=== PATIENT | female | born 1975 | race African-American/Black ===

== ENCOUNTER 2017-01-02 09:54 | Emergency (ER) | payer BC, OTHER ==
--- NOTE | 2017-01-02 10:25 | ER Document Report ---
ED Medical Screen (RME) - General Chief Complaint: Abdominal Pain Stated Complaint: ABDOMINAL PAIN Time Seen by Provider: 01/02/17 10:23 Notes: Patient complains of diffuse abdominal pain for 3 days. States she has decreased appetite and nausea. She says she also has diarrhea. She denies any vaginal symptoms. She states she has frequency but no dysuria. She states she has had one previous abdominal surgery for an ectopic . She denies chronic medical problems. She states her blood pressure normally runs low. TRAVEL OUTSIDE OF THE [place] IN LAST 30 DAYS: No - Related Data Allergies/Adverse Reactions: divalproex sodium [From Depakote] Allergy (Severe, Verified 01/02/17 10:02) Hives Penicillins Allergy (Severe, Verified 01/02/17 10:02) Anaphylaxis sulfamethoxazole [From Septra] Allergy (Severe, Verified 01/02/17 10:02) Hives trimethoprim [From Septra] Allergy (Severe, Verified 01/02/17 10:02) Hives tramadol [Tramadol] Adverse Reaction (Verified 01/02/17 10:02) vomitting Past Medical History - Social History Family history: Reviewed & Not Pertinent - Past Medical History Cardiac Medical History: Denies: Hx Coronary Artery Disease, Hx Heart Attack, Hx Hypertension Pulmonary Medical History: Reports: Hx Asthma, Hx Bronchitis Denies: Hx COPD, Hx Pneumonia Neurological Medical History: Reports: Hx Migraine. Denies: Hx Cerebrovascular Accident, Hx Seizures Renal/ Medical History: Denies: Hx Peritoneal Dialysis Musculoskeltal Medical History: Reports Hx Arthritis - Chronic back pain Past Surgical History: Reports: Hx Gynecologic Surgery - tubal , Hx Hysterectomy, Hx Orthopedic Surgery - R wrist, Hx Tubal Ligation - Immunizations Immunizations up to date: Yes Hx Diphtheria, Pertussis, Tetanus Vaccination: Yes Physical Exam - Vital signs Vitals: Temp Pulse Resp BP Pulse Ox 98.3 F 58 L 14 98/61 L 99 01/02/17 10:02 01/02/17 10:02 01/02/17 10:02 01/02/17 10:02 01/02/17 10:02 Course - Vital Signs Vital signs: Temp Pulse Resp BP Pulse Ox 98.3 F 58 L 14 98/61 L 99 01/02/17 10:02 01/02/17 10:02 01/02/17 10:02 01/02/17 10:02 01/02/17 10:02
[2017-01-02 11:05] LABS: ABSOLUTE EOSINOPHILS # (AUTO) 0.1 10^3/uL (0.0-0.6); ABSOLUTE LYMPHOCYTES (AUTO) 1.2 10^3/uL (0.5-4.7); ABSOLUTE MONOCYTES (AUTO) 0.3 10^3/uL (0.1-1.4); ABSOLUTE NEUT (AUTO) 3.8 10^3/uL (1.7-8.2); BASOPHILS % (AUTO) 0.3 % (0-2); EOSINOPHILS % (AUTO) 1.5 % (0-6); HEMATOCRIT 37.6 % (36.0-47.0); HEMOGLOBIN 12.7 g/dL (12.0-15.5); HGB HCT DIFFERENCE 0.5; LYMPHOCYTES % (AUTO) 22.4 % (13-45); MEAN CORPUSCULAR HEMOGLOBIN 32.3 pg (27.0-33.4); MEAN CORPUSCULAR HGB CONC 33.9 g/dL (32.0-36.0); MEAN CORPUSCULAR VOLUME 95 fl (80-97); MONOCYTES % (AUTO) 4.8 % (3-13); RED BLOOD COUNT 3.95 10^6/uL (3.72-5.28); RED CELL DISTRIBUTION WIDTH 13.9 % (11.5-14.0); WHITE BLOOD COUNT 5.4 10^3/uL (4.0-10.5)
[2017-01-02 11:22] LABS: ALANINE AMINOTRANSFERASE 33 U/L (9-52); ALBUMIN 4.2 g/dL (3.5-5.0); ALKALINE PHOSPHATASE 43 U/L (38-126); ANION GAP 9 (5-19); ASPARTATE AMINO TRANSFERASE 20 U/L (14-36); BILIRUBIN,DIRECT 0.4 mg/dL (0.0-0.4); BILIRUBIN,TOTAL 0.7 mg/dL (0.2-1.3); BLOOD UREA NITROGEN 9 mg/dL (7-20); CALCIUM 9.2 mg/dL (8.4-10.2); CARBON DIOXIDE 27 mmol/L (22-30); CHLORIDE 106 mmol/L (98-107); CREATININE RESULT 1.01 mg/dL (0.52-1.25); GLUCOSE 87 mg/dL (75-110); LIPASE 75.4 U/L (23-300); POTASSIUM 4.2 mmol/L (3.6-5.0); SODIUM 141.9 mmol/L (137-145); TOTAL PROTEIN 7.5 g/dL (6.3-8.2)
[2017-01-02 11:37] LABS: APPEARANCE,URINE SLIGHTLY-CLOUDY; BILIRUBIN,URINE NEGATIVE (NEGATIVE); GLUCOSE, URINE NEGATIVE (NEGATIVE); KETONES,URINE NEGATIVE (NEGATIVE); LEUKOCYTE ESTERASE,URINE NEGATIVE (NEGATIVE); NITRITE,URINE NEGATIVE (NEGATIVE); PROTEIN,URINE NEGATIVE (NEGATIVE); UROBILINOGEN,URINE NEGATIVE mg/dL (<2.0)
[2017-01-02] MEDS ORDERED: MAG HYDROX/AL HYDROX/SIMETH SUSP 30 ML UDCUP PO ONE (12:19)
[2017-01-02] MEDS ORDERED: LIDOCAINE 2% VISCOUS SOLN 20 ML UDCUP PO ONE ×2 (12:19→13:30)
[2017-01-02] MEDS ORDERED: NORMAL SALINE 1000 ML 1,000 ML IV ONE (12:22)
--- NOTE | 2017-01-02 12:22 | ER Document Report ---
ED GI/ - General Chief Complaint: Abdominal Pain Stated Complaint: ABDOMINAL PAIN Time Seen by Provider: 01/02/17 10:23 Mode of Arrival: Ambulatory Information source: Patient Notes: Patient presents with 3 day history of abdominal pain and decreased appetite. Patient states that the pain starts in the upper abdomen and radiates to her left lower quadrant. Patient does report nausea and vomited twice yesterday and had diarrhea yesterday. Patient denies any vomiting or diarrhea today. Patient does complain of some urinary frequency. No fever. Patient additionally complains of rash to the anterior aspect of her left lower extremity that has been there for months. Patient denies any new medications, soaps or detergents. Patient denies any vaginal bleeding or discharge. Patient denies any concern about sexually transmitted infection. TRAVEL OUTSIDE OF THE [place] IN LAST 30 DAYS: No - HPI Patient complains to provider of: Abdominal pain, Diarrhea, Vomiting. No: Vaginal discharge Onset: Other - 3 days Timing/Duration: Persistent Quality of pain: Sharp, Throbbing Pain Level: 3 Location: Epigastric, LLQ Vaginal bleeding (Compared to normal period): None Sexual history: Active Associated symptoms: Diarrhea, Nausea, Urinary frequency, Vomiting. denies: Constipation, Dysuria, Fever, Urinary hesitancy, Urinary retention, Urinary urgency, Vaginal discharge Exacerbated by: Denies Relieved by: Denies Similar symptoms previously: No Recently seen / treated by doctor: No - Related Data Allergies/Adverse Reactions: divalproex sodium [From Depakote] Allergy (Severe, Verified 01/02/17 10:02) Hives Penicillins Allergy (Severe, Verified 01/02/17 10:02) Anaphylaxis sulfamethoxazole [From Septra] Allergy (Severe, Verified 01/02/17 10:02) Hives trimethoprim [From Septra] Allergy (Severe, Verified 01/02/17 10:02) Hives tramadol [Tramadol] Adverse Reaction (Verified 01/02/17 10:02) vomitting Past Medical History - General Information source: Patient - Social History Smoking Status: Never Smoker Chew tobacco use (# tins/day): No Frequency of alcohol use: None Drug Abuse: None Occupation: data operations manager Family History: Reviewed & Not Pertinent Patient has suicidal ideation: No Patient has homicidal ideation: No - Past Medical History Cardiac Medical History: Denies: Hx Coronary Artery Disease, Hx Heart Attack, Hx Hypertension Pulmonary Medical History: Reports: Hx Asthma, Hx Bronchitis Denies: Hx COPD, Hx Pneumonia Neurological Medical History: Reports: Hx Migraine. Denies: Hx Cerebrovascular Accident, Hx Seizures Renal/ Medical History: Denies: Hx Peritoneal Dialysis Musculoskeltal Medical History: Reports Hx Arthritis - Chronic back pain Past Surgical History: Reports: Hx Gynecologic Surgery - tubal , left ovary removed, Hx Hysterectomy, Hx Orthopedic Surgery - R wrist, Hx Tubal Ligation - Immunizations Immunizations up to date: Yes Hx Diphtheria, Pertussis, Tetanus Vaccination: Yes Review of Systems - Review of Systems Constitutional: No symptoms reported. denies: Fever, Recent illness EENT: No symptoms reported Cardiovascular: No symptoms reported. denies: Chest pain Respiratory: No symptoms reported. denies: Cough, Short of breath Gastrointestinal: Abdominal pain, Diarrhea - Yesterday, Vomiting - Yesterday. denies: Constipation, Poor appetite Genitourinary: Dysuria. denies: Flank pain Female Genitourinary: No symptoms reported. denies: , Vaginal discharge , Vaginal bleeding Musculoskeletal: Back pain - Chronic low back pain Skin: No symptoms reported Hematologic/Lymphatic: No symptoms reported Neurological/Psychological: No symptoms reported Physical Exam - Vital signs Vitals: Temp Pulse Resp BP Pulse Ox 98.3 F 58 L 14 98/61 L 99 01/02/17 10:02 01/02/17 10:02 01/02/17 10:02 01/02/17 10:02 01/02/17 10:02 - General General appearance: Appears well, Alert In distress: None - HEENT Head: Normocephalic, Atraumatic Eyes: Normal Nasal: Normal Mouth/Lips: Normal Mucous membranes: Normal Neck: Normal, Supple. No: Lymphadenopathy - Respiratory Respiratory status: No respiratory distress Chest status: Nontender Breath sounds: Normal. No: Rales, Rhonchi, Stridor, Wheezing Chest palpation: Normal - Cardiovascular Rhythm: Regular Heart sounds: S1 appreciated, S2 appreciated Murmur: No - Abdominal Inspection: Normal Distension: No distension Bowel sounds: Normal Tenderness: Tender - epig Organomegaly: No organomegaly - Back Back: Tender - Lumbar paraspinal tenderness, Vertebra tenderness - Lower lumbar tenderness. No: Deformity/step-off, CVA tenderness - Extremities General upper extremity: Normal inspection, Normal ROM General lower extremity: Normal inspection, Normal ROM - Neurological Neuro grossly intact: Yes Cognition: Normal [place] Coma Scale Eye Opening: Spontaneous [place] Coma Scale Verbal: Oriented [place] Coma Scale Motor: Obeys Commands [place] Coma Scale Total: 15 - Psychological Associated symptoms: Normal affect, Normal mood - Skin Skin Temperature: Warm Skin Moisture: Dry Skin Color: Normal Course - Re-evaluation Re-evalutation: 01/02/17 14:[address] Peace regarding patient presentation diagnostic test results and ultrasound report. Recommends consultation with surgeon. Attempted to consult with surgeon Dr. Shin. Message relayed through the OR nurse at the time. RN advised of patient presentation and request for surgical evaluation of patient in the ER. RN states she will relay the message. 01/02/17 14:[address] Shin and reviewed patient's exam findings, diagnostic test results and presentation. Advises having patient on a clear liquid diet, managing her pain with Bentyl and having her follow-up with the surgeon on an outpatient basis. Advises giving good return precautions. 01/02/17 14:48 Patient reports that abdominal pain improved after GI cocktail. Patient advised of results of diagnostic test results including ultrasound report findings. Patient advised of conversation with surgeon Dr. Shin. Patient advised that she will need to be on a clear liquid diet and need to follow-up with with general surgery on an outpatient basis to have her gallbladder removed. Patient verbalized understanding and agrees with plan of care. - Vital Signs Vital signs: Temp Pulse Resp BP Pulse Ox 98.0 F 68 16 107/64 98 01/02/17 13:29 01/02/17 13:29 01/02/17 13:29 01/02/17 13:29 01/02/17 13:29 - Laboratory Result Diagrams: 01/02/17 10:57 01/02/17 10:57 Laboratory results interpreted by me: Labs- Entire Visit 01/02/17 01/02/17 01/02/17 10:57 10:57 10:58 WBC 5.4 RBC 3.95 Hgb 12.7 Hct 37.6 MCV 95 MCH 32.3 MCHC 33.9 RDW 13.9 Plt Count 200 Seg Neutrophils % 71.0 Lymphocytes % 22.4 Monocytes % 4.8 Eosinophils % 1.5 Basophils % 0.3 Absolute Neutrophils 3.8 Absolute Lymphocytes 1.2 Absolute Monocytes 0.3 Absolute Eosinophils 0.1 Absolute Basophils 0.0 Sodium 141.9 Potassium 4.2 Chloride 106 Carbon Dioxide 27 Anion Gap 9 BUN 9 Creatinine 1.01 Est GFR ( Amer) > 60 Est GFR (Non-Af Amer) > 60 Glucose 87 Calcium 9.2 Total Bilirubin 0.7 Direct Bilirubin 0.4 Indirect Bilirubin Not Reportable Neonat Total Bilirubin Not Reportable AST 20 ALT 33 Alkaline Phosphatase 43 Total Protein 7.5 Albumin 4.2 Lipase 75.4 Urine Color YELLOW Urine Appearance SLIGHTLY-CLOUDY Urine pH 5.0 Ur Specific [place] 1.020 Urine Protein NEGATIVE Urine Glucose (UA) NEGATIVE Urine Ketones NEGATIVE Urine Blood NEGATIVE Urine Nitrite NEGATIVE Urine Bilirubin NEGATIVE Urine Urobilinogen NEGATIVE Ur Leukocyte Esterase NEGATIVE Urine WBC (Auto) 10 Urine RBC (Auto) 4 Squamous Epi Cells Auto 16 Urine Mucus (Auto) RARE Urine Ascorbic Acid NEGATIVE Urine HCG, Qual NEGATIVE - Diagnostic Test Radiology reviewed: Reports reviewed Discharge - Discharge Clinical Impression: Epigastric abdominal pain, Gallbladder attack, Nausea vomiting and diarrhea, Skin rash Condition: Stable Disposition: HOME, SELF-CARE Instructions: Abdominal Pain ([facility]), Antinausea Medication ([facility]), Antispasmodics ([facility]), Gallbladder Disease ([facility]), Vomiting ([facility]) Additional Instructions: Return immediately for any new or worsening symptoms Followup with your primary care provider, call tomorrow to make a followup appointment Follow-up with the general surgeon for further evaluation. You will likely need to have your gallbladder removed. It is important that you stay on a clear liquid diet or a very bland diet avoiding any fatty foods. Return immediately for any fever, increased abdominal pain, persistent vomiting , darkening of the skin, eyes or urine, or any concerning symptoms Prescriptions: Dicyclomine HCl [Bentyl 20 mg Tablet] 20 mg PO QID #20 tablet Ondansetron HCl [Zofran 4 mg Tablet] 1 - 2 tab PO Q6 PRN #15 tablet PRN Reason: Triamcinolone Acetonide [Aristocort 0.1% Cream] 1 applic TP TID #60 gm Forms: Return to Work Referrals: [facility] [Provider Group] - Follow up tomorrow IRASEMA ROCHA MD [Primary Care Provider] - Follow up as needed ULYSSES GRANT DO [ACTIVE STAFF] - Follow up in 1 week
--- NOTE | 2017-01-02 13:02 | RADIOLOGY REPORT (SQ) ---
EXAM DESCRIPTION: U/S ABDOMEN LIMITED W/O DOP COMPLETED DATE/TIME: 01/02/2017 12:51 pm REASON FOR STUDY: upper abd pain COMPARISON: None. TECHNIQUE: Dynamic and static grayscale images acquired of the abdomen and recorded on PACS. Additio nal selected color Doppler and spectral images recorded. LIMITATIONS: None. FINDINGS: PANCREAS: No masses. Visualized pancreatic duct normal caliber. LIVER: No masses. Echotexture normal. LIVER VASCULATURE: Normal directional flow of the main portal vein and hepatic veins. GALLBLADDER: No stones. Small mucosal polyp. Normal wall thickness. Trace pericholecystic fluid. ULTRASOUND-DETECTED TILLEY'S SIGN: Positive. INTRAHEPATIC DUCTS AND COMMON DUCT: CBD and intrahepatic ducts normal caliber. No filling defects. INFERIOR VENA CAVA: Normal flow. AORTA: No aneurysm. RIGHT KIDNEY: Normal size. Normal echogenicity. No solid or suspicious masses. No hydronephrosis. No calcifications. PERITONEAL AND RIGHT PLEURAL SPACE: No ascites or effusions. OTHER: No other significant findings. IMPRESSION: NO GALLSTONES. SMALL MUCOSAL POLYP. TRACE PERICHOLECYSTIC FLUID WITH REPORTED POSITIVE SONOGRAPHIC TILLEY SIGN. CONSIDER POSSIBILITY OF ACALCULOUS CHOLECYSTITIS. TECHNICAL DOCUMENTATION: JOB ID: [id number] [employer]- All Rights Reserved
[2017-01-02 13:31] VITALS: BP 107/64
== END 2017-01-02 15:06 | disposition home or self-care (01) ==
LOC: ER 09:54
DX: R10.13 Epigastric pain (principal); K81.0 Acute cholecystitis; R10.32 Left lower quadrant pain; R21 Rash and other nonspecific skin eruption; R19.7 Diarrhea, unspecified; R11.2 Nausea with vomiting, unspecified; R35.0 Frequency of micturition; Z88.0 Allergy status to penicillin; Z88.3 Allergy status to other anti-infective agents; Z90.710 Acquired absence of both cervix and uterus
CPT/HCPCS: 99284; 36415; 83690; 85025; 81025; 80053; 81001; 76705; J3490

== ENCOUNTER → 2017-01-31 | Outpatient (CLI) | payer BC ==
--- NOTE | 2017-01-31 15:53 | RADIOLOGY REPORT (SQ) ---
EXAM DESCRIPTION: CT ABDOMEN WITH IV ORAL CONT COMPLETED DATE/TIME: 01/31/2017 3:29 pm REASON FOR STUDY: ABDMINAL PAIN R10.9 UNSPECIFIED ABDOMINAL PAIN COMPARISON: 01/02/[address] abdomen 2013. TECHNIQUE: CT scan of the abdomen performed with intravenous and oral contrast using helical scannin g technique with dynamic intravenous contrast injection. Images reviewed with lung, soft tissue, and bone windows. Reconstructed coronal and sagittal MPR images reviewed. Delayed images for evaluation o f the urinary system also acquired. All images stored on PACS. All CT scanners at this facility use dose modulation, iterative reconstruction, and/or weight based d osing when appropriate to reduce radiation dose to as low as reasonably achievable (ALARA). [facility]: Dose Right [facility]: CareDose [facility]: Dose Right [facility]: Teradose 4D [facility]: Drone.io CONTRAST TYPE AND DOSE: contrast/concentration: Isovue 370.00 mg/ml; Total Contrast Delivered: 64.0 ml; Total Saline Delivered: 26.9 ml RENAL FUNCTION: None required. The patient is less than 50 years old. RADIATION DOSE: Up-to-date CT equipment and radiation dose reduction techniques were employed. CTDIv ol: 2.4 - 2.8 mGy. DLP: 180 mGy-cm.. LIMITATIONS: None. FINDINGS: LOWER CHEST: No significant findings. No nodules or infiltrates. LIVER: Normal size. No masses. No dilated ducts. SPLEEN: Normal size. No focal lesions. PANCREAS: No masses. No significant calcifications. No adjacent inflammation or peripancreatic fluid collections. Pancreatic duct not dilated. GALLBLADDER: No identified stones by CT criteria. No inflammatory changes to suggest cholecystitis. ADRENAL GLANDS: No significant masses or asymmetry. RIGHT KIDNEY AND URETER: No solid masses. No significant calcification. No hydronephrosis or hydroure ter. LEFT KIDNEY AND URETER: No solid masses. No significant calcification. No hydronephrosis or hydrouret er. AORTA AND VESSELS: No aneurysm. No dissection. Renal arteries, SMA, celiac without stenosis. RETROPERITONEUM: No retroperitoneal adenopathy, hemorrhage or masses. BOWEL AND PERITONEAL CAVITY: No obstruction. No visualized masses. No free fluid. No inflammatory ch anges or thickening of bowel wall. APPENDIX: Not visualized. ABDOMINAL WALL: No masses. No hernias. BONES: No significant or acute findings. OTHER: No other significant finding. IMPRESSION: 1. Normal CT of the abdomen. TECHNICAL DOCUMENTATION: JOB ID: [id number] Quality ID # [id number]: Final reports with documentation of one or more dose reduction techniques (e.g., Au tomated exposure control, adjustment of the mA and/or kV according to patient size, use of iterative reconstruction technique) 2010 [employer]- All Rights Reserved
== END ==
LOC: RAD 14:46
PROVIDERS: ATTEND Surgery
DX: R10.9 Unspecified abdominal pain (principal)
CPT/HCPCS: 74160

== ENCOUNTER → 2017-02-20 | Outpatient (CLI) | payer BC ==
--- NOTE | 2017-02-20 16:54 | RADIOLOGY REPORT (SQ) ---
EXAM DESCRIPTION: NM HIDA SCAN COMPLETED DATE/TIME: 02/20/2017 3:09 pm REASON FOR STUDY: EPIGASTRIC PAIN (R10.13), CHANGE IN BOWEL HABIT (R19.4) R10.13 EPIGASTRIC PAIN R1 9.4 CHANGE IN BOWEL HABIT COMPARISON: CT abdomen pelvis 01/21/2014, 01/31/2017 Right upper quadrant ultrasound 01/02/2017 RADIONUCLIDE AND DOSE: DOSAGE RADIONUCLIDE: 5.2 millicuries Tc99m Mebrofenin. DOSAGE MORPHINE: Not required. The route of agent administration: Intravenous TECHNIQUE: Serial imaging right upper quadrant up to 60 minutes following injection of radionuclide. Patient imaged AP and Right Lateral. LIMITATIONS: None. FINDINGS: Prompt homogeneous uptake throughout the liver which clears by 60 minutes. By 10 minutes, common bile duct, duodenum and jejunum exhibit activity. No gallbladder activity. By 60 minutes nearly all the activity is present in bowel. There are multiple bowel loops superimpos ed on the right upper quadrant. It is difficult to discern if the gallbladder actually accumulates a ny activity on this study. IMPRESSION: No evidence of common duct obstruction. Normal hepatic excretion of the hepatobiliary a gent. Bowel activity was so intense on the study by 30 minutes, that it was difficult to discern if there w as truly any gallbladder accumulation. This is a nondiagnostic study for gallbladder activity TECHNICAL DOCUMENTATION: JOB ID: [id number] [employer]- All Rights Reserved
== END ==
LOC: RAD 12:30
PROVIDERS: ATTEND Surgery
DX: R10.13 Epigastric pain (principal); R19.4 Change in bowel habit
CPT/HCPCS: 78226; A9537; Q9969

== ENCOUNTER 2017-03-06 08:46 | Day surgery (SDC) | payer BC ==
[2017-03-06] MEDS ORDERED: NALOXONE HCL INJ/PF 0.4 MG/1 ML SDV ONE (08:50)
[2017-03-06] MEDS ORDERED: GLYCOPYRROLATE INJ 0.4 MG/2 ML VIAL ONE (08:50)
[2017-03-06] MEDS ORDERED: ONDANSETRON HCL INJ/PF 4 MG/2 ML SDV ONE (08:50)
[2017-03-06] MEDS ORDERED: FLUMAZENIL INJ 0.5 MG/5 ML VIAL ONE (08:51)
[2017-03-06] MEDS ORDERED: EPINEPHRINE INJ 1 MG/10 ML DISP.SYRIN ONE (08:51)
[2017-03-06] MEDS ORDERED: GLUCAGON,HUMAN RECOMB 1 MG INJ ONE (08:52)
[2017-03-06 09:12] LABS: HEMATOCRIT 38.2 % (36.0-47.0); HEMOGLOBIN 12.8 g/dL (12.0-15.5); HGB HCT DIFFERENCE 0.2; MEAN CORPUSCULAR HEMOGLOBIN 31.6 pg (27.0-33.4); MEAN CORPUSCULAR HGB CONC 33.6 g/dL (32.0-36.0); MEAN CORPUSCULAR VOLUME 94 fl (80-97); RED BLOOD COUNT 4.06 10^6/uL (3.72-5.28); RED CELL DISTRIBUTION WIDTH 13.6 % (11.5-14.0); WHITE BLOOD COUNT 6.4 10^3/uL (4.0-10.5)
[2017-03-06 09:35] LABS: ALANINE AMINOTRANSFERASE 26 U/L (9-52); ALBUMIN 4.1 g/dL (3.5-5.0); ALKALINE PHOSPHATASE 44 U/L (38-126); ANION GAP 11 (5-19); ASPARTATE AMINO TRANSFERASE 33 U/L (14-36); BILIRUBIN,DIRECT 0.5 mg/dL (0.0-0.4); BILIRUBIN,TOTAL 0.7 mg/dL (0.2-1.3); BLOOD UREA NITROGEN 10 mg/dL (7-20); CALCIUM 8.9 mg/dL (8.4-10.2); CARBON DIOXIDE 26 mmol/L (22-30); CHLORIDE 107 mmol/L (98-107); CREATININE RESULT 0.89 mg/dL (0.52-1.25); GLUCOSE 88 mg/dL (75-110); LIPASE 114.8 U/L (23-300); POTASSIUM 3.9 mmol/L (3.6-5.0); TOTAL PROTEIN 7.4 g/dL (6.3-8.2)
[2017-03-06] MEDS: MIDAZOLAM 2 MG/2 ML INJ ONE ×4 (09:50→10:21)
[2017-03-06] MEDS: FENTANYL CITRATE INJ/PF 100 MCG/2 ML AMPUL ONE ×2 (09:52→10:15)
--- NOTE | 2017-03-06 10:57 | Operative Report ---
Operative Report DATE OF SURGERY: 03/06/17 PREOPERATIVE DIAGNOSIS: Bowel habit changes, abdominal pain. POSTOPERATIVE DIAGNOSIS: Gastritis, colitis OPERATION: Esophagogastroduodenoscopy with antral biopsies. Colonoscopy with colon biopsies. SURGEON: JOHANNY FUNEZ ANESTHESIA: Moderate Sedation TISSUE REMOVED OR ALTERED: Antral biopsy. Right colon biopsy. Liquid stool sent for studies. COMPLICATIONS: None ESTIMATED BLOOD LOSS: Minimal INTRAOPERATIVE FINDINGS: Mild gastric erythema but no ulcerations. Normal- appearing esophagus. Erythema scattered throughout the colon but no ulcerations and no masses. Thick liquid stool throughout the colon. PROCEDURE: Informed consent was obtained. Patient was brought to the endoscopy suite. IV sedation with Versed and fentanyl was administered. Endoscope was passed via the patient's mouth it was fed down to the second portion of the duodenum. Duodenal bulb had mild erythema but no ulcerations no masses. The gastric mucosa appeared mildly erythematous but no ulcerations no masses. Random antral biopsies were taken for H. pylori. There was a lot of air bubbles in the stomach extending to the esophagus which was controlled with simethicone injection through the scope. The esophagus appeared normal. Patient was repositioned. Digital rectal exam revealed no palpable perianal masses. Endoscope was passed via the patient's anus it was fed to the cecum. Patient's sigmoid colon redundancies and thick liquid stool throughout the colon made the procedure difficult. Multiple technical measures were taken to pass the scope to the cecum. Frequent irrigation and aspiration had to be performed to obtain adequate visualization. Throughout the entire colon from the right colon to the sigmoid colon there were mild mucosal erythema but no ulcerations and no masses. Right colon biopsies were performed. Some of the thick liquid stool was aspirated for Gram stain and culture, ova and parasites, fecal leukocytes, and C. difficile toxin studies. Patient tolerated procedure well with no apparent complications and was taken to the recovery area in stable condition. Evidence of mild gastritis seen but with the severity of her symptoms I do not think it is the etiology of her pain. It is possible that she has pancolitis. Will await biopsy and stool study results. I will follow-up with the patient. Of note her CCK HIDA study was nondiagnostic with unclear visualization of the gallbladder. Radiologist noted a lot of air in the bowel. And I did note a lot of air bubbles in the stomach during the upper endoscopy. While awaiting pathology report I [facility].
--- NOTE | 2017-03-06 11:06 | PDOC DISCHARGE SUMMARY ---
Discharge Summary (SDC) - Discharge Final Diagnosis: Gastritis, colitis. Date of Surgery: 03/06/17 Discharge Date: 03/06/17 Condition: Good Treatment or Instructions: Underwent esophagogastroduodenoscopy with gastric biopsy, colonoscopy with colon biopsies. May discharge patient home when met discharge criteria. Follow -up with me in 2 weeks. Prescriptions: Simethicone [Gas-X] 125 mg PO TID PRN #90 tab.chew PRN Reason: Referrals: JOHANNY FUNEZ MD [Primary Care Provider] - Discharge Diet: As Tolerated Discharge Activity: Activity As Tolerated Report the Following to Your Physician Immediately: Unusual Bleeding
[2017-03-06 11:41] VITALS: BP 98/61
== END 2017-03-06 11:40 | disposition home or self-care (01) ==
LOC: END 08:46
PROVIDERS: ATTEND Surgery
PROC: 0DB68ZX Excision of Stomach, Via Natural or Artificial Opening Endoscopic, Diagnostic (ICD-10-PCS; principal; 2017-03-06 09:30)
PROC: 0DBF8ZX Excision of Right Large Intestine, Via Natural or Artificial Opening Endoscopic, Diagnostic (ICD-10-PCS; 2017-03-06 09:30)
DX: K29.50 Unspecified chronic gastritis without bleeding (principal); K52.9 Noninfective gastroenteritis and colitis, unspecified; E07.9 Disorder of thyroid, unspecified; F17.210 Nicotine dependence, cigarettes, uncomplicated; Z88.0 Allergy status to penicillin; Z88.3 Allergy status to other anti-infective agents; Z88.5 Allergy status to narcotic agent; Z88.8 Allergy status to other drugs, medicaments and biological substances; Z02.89 Encounter for other administrative examinations
CPT/HCPCS: 43239; 45380; 36415; 87045; 89055; 87205; 87209; 83690; 87177; 85027; 80053; 87493; 88305 ×2; J2250; J3010; J0171; J1610; J2310; J2405; J3490

== ENCOUNTER 2017-05-29 11:06 | Day surgery (SDC) | payer BC ==
[2017-05-22 12:24] LABS: HEMATOCRIT 35.9 % (36.0-47.0); HEMOGLOBIN 12.4 g/dL (12.0-15.5); MEAN CORPUSCULAR HEMOGLOBIN 32.8 pg (27.0-33.4); MEAN CORPUSCULAR HGB CONC 34.4 g/dL (32.0-36.0); MEAN CORPUSCULAR VOLUME 95 fl (80-97); PLATELET COUNT 222 10^3/uL (150-450); RED BLOOD COUNT 3.77 10^6/uL (3.72-5.28); RED CELL DISTRIBUTION WIDTH 13.6 % (11.5-14.0); WHITE BLOOD COUNT 6.8 10^3/uL (4.0-10.5)
[2017-05-22 12:45] LABS: ALANINE AMINOTRANSFERASE 22 U/L (9-52); ALBUMIN 4.2 g/dL (3.5-5.0); ALKALINE PHOSPHATASE 46 U/L (38-126); ANION GAP 8 (5-19); ASPARTATE AMINO TRANSFERASE 21 U/L (14-36); BILIRUBIN,DIRECT 0.4 mg/dL (0.0-0.4); BILIRUBIN,TOTAL 0.7 mg/dL (0.2-1.3); BLOOD UREA NITROGEN 9 mg/dL (7-20); CALCIUM 9.3 mg/dL (8.4-10.2); CARBON DIOXIDE 25 mmol/L (22-30); CHLORIDE 106 mmol/L (98-107); GLUCOSE 68 mg/dL (75-110); LIPASE 134.4 U/L (23-300); POTASSIUM 4.3 mmol/L (3.6-5.0); SODIUM 139.4 mmol/L (137-145); TOTAL PROTEIN 7.4 g/dL (6.3-8.2)
[~2017-05-29 11:06] MED LIST: ACETAMINOPHEN 325 MG TABLET PO PRN; BUPIVACAINE HCL 0.25 % INJ/PF (2.5 MG/1 ML) 30 ML VIAL ONE; DEXAMETHASONE SOD PHOSPHATE INJ 4 MG/1 ML VIAL ONE; GLYCOPYRROLATE INJ 0.4 MG/2 ML VIAL ONE; LEVOFLOXACIN 500 MG/D5W RTU 500 MG/100 ML RTUPB IV PRN; LEVOFLOXACIN 750 MG/D5W RTU 750 MG/150 ML RTUPB IV SCH; NEOSTIGMINE METHYLSULFATE 10 MG/10 ML VIAL ONE; ONDANSETRON HCL INJ/PF 4 MG/2 ML SDV ONE; RINGERS SOLUTION,LACTATED 1,000 ML IV PRN; ROCURONIUM BROMIDE INJ 50 MG/5 ML VIAL IV ONE; SUCCINYLCHOLINE CHLORIDE INJ 200 MG/10 ML VIAL ONE
[2017-05-29] MEDS ORDERED: PROPOFOL INJ 200 MG/20 ML VIAL IV ONE (14:15)
[2017-05-29] MEDS ORDERED: MIDAZOLAM 2 MG/2 ML INJ ONE (14:15)
[2017-05-29] MEDS ORDERED: EPHEDRINE SULFATE INJ 50 MG/1 ML AMPULE ONE (14:15)
[2017-05-29] MEDS ORDERED: FENTANYL CITRATE INJ/PF 250 MCG/5 ML AMPULE ONE (14:15)
[2017-05-29] MEDS ORDERED: ACETAMINOPHEN 100 ML IV ONE (14:15)
[2017-05-29] MEDS ORDERED: HYDROMORPHONE HCL INJ/PF 2 MG/ML AMPULE ONE (14:16)
[2017-05-29] MEDS ORDERED: MEPERIDINE HCL/PF INJ 25 MG/1 ML DISP.SYRIN IV PRN (14:58)
[2017-05-29] MEDS ORDERED: DIPHENHYDRAMINE HCL 50 MG/ML VIAL IV PRN (14:58)
[2017-05-29] MEDS ORDERED: PROMETHAZINE HCL INJ 25 MG/1 ML VIAL IV PRN ×2 (14:58)
[2017-05-29] MEDS ORDERED: FENTANYL CITRATE INJ/PF 100 MCG/2 ML AMPUL IV PRN ×3 (14:58)
[2017-05-29] MEDS ORDERED: ONDANSETRON HCL INJ/PF 4 MG/2 ML SDV IV PRN (15:45)
[2017-05-29] MEDS ORDERED: OXYCODONE-ACETAMINOPHEN 5-325 MG TABLET PO PRN (15:45)
[2017-05-29] MEDS ORDERED: RINGERS SOLUTION,LACTATED 1,000 ML IV PRN (15:45)
--- NOTE | 2017-05-29 15:45 | Operative Report ---
Operative Report DATE OF SURGERY: 05/29/17 PREOPERATIVE DIAGNOSIS: Abdominal pain. Chronic cholecystitis. POSTOPERATIVE DIAGNOSIS: Same, bilateral ovarian and paratubal cysts. OPERATION: Laparoscopic cholecystectomy. Exploratory laparoscopy. SURGEON: JOHANNY FUNEZ ANESTHESIA: GA TISSUE REMOVED OR ALTERED: gallbladder COMPLICATIONS: None ESTIMATED BLOOD LOSS: Minimal INTRAOPERATIVE FINDINGS: Normal-appearing liver, stomach, anterior surface of the first and second portion of the duodenum, right colon, appendix, transverse colon, sigmoid colon, anterior abdominal wall. Bilateral benign-appearing ovarian and paratubal cysts. Normal-appearing small bowel. Distended gallbladder with gallbladder wall thickening. PROCEDURE: Informed consent was obtained. Patient was brought to the operating room placed operating table in supine position. After satisfactory induction of general anesthesia, patient's abdomen was prepped and draped in usual sterile fashion. A supraumbilical midline incision was made and dissection carried down to the fascia the peritoneal cavity entered without difficulty. Diaz trocar was inserted. Pneumoperitoneum produced good patient toleration. 5 mm trocar was placed in the subxiphoid location.Two 5 mm trochars were placed in the right subcostal location. Exploratory laparoscopy was performed first since she had epigastric abdominal pain and the diagnosis was uncertain about the gallbladder. The liver appeared normal. Anterior abdominal wall appeared normal. The anterior surface of the stomach and first and second portion of the duodenum appeared to be normal. The right colon and the appendix appeared normal. The transverse colon and the sigmoid colon appeared normal. The small bowel was run from the ileocecal junction up proximally but no gross abnormalities were seen. Both of the ovaries were visualized. There were ovarian as well as paratubal cysts. I conferred with the on-call senior benefits manager who thought that these were benign findings. There was small amount of clear serous fluid in the peritoneal cavity. The gallbladder appeared distended and its wall appeared somewhat thickened. The gallbladder was grasped and retracted cephalad over the dome of the liver. The infundibulum of the gallbladder was grasped retracted laterally and inferiorly thus exposing calot' s triangle. Calot's node was taken off by clipping and dividing. The cystic duct gallbladder junction was clearly identified and the cystic duct was clipped and divided. Cystic artery was likewise taken. The gallbladder was taken off the gallbladder bed using the hook electrocautery technique. The gallbladder was removed with an Endobag through the Diaz trocar site fascial defect. Hemostasis appeared excellent. No irrigation was used during the case. All trochars were removed under the direct vision a laparoscope to ensure hemostasis. The Diaz trocar site fascial defect was closed with interrupted Vicryl sutures. All skin incisions were closed with subcuticular interrupted Monocryl sutures. Marcaine was injected at the port sites. Patient tolerated procedure well no apparent complications and was taken to the recovery area in stable condition.
--- NOTE | 2017-05-29 15:49 | PDOC DISCHARGE SUMMARY ---
Discharge Summary (SDC) - Discharge Final Diagnosis: Chronic cholecystitis, bilateral ovarian and paratubal cysts. Date of Surgery: 05/29/17 Discharge Date: 05/29/17 Condition: Good Treatment or Instructions: Underwent laparoscopic cholecystectomy and exploratory laparoscopy. May discharge patient home when met discharge criteria. Stay active but avoid strenuous activity. May shower tomorrow. Keep Steri-Strips on. Follow-up with me in 2 weeks. Referrals: IRASEMA ROCHA MD [Primary Care Provider] - Discharge Diet: As Tolerated Discharge Activity: Activity As Tolerated - Stay active but avoid strenuous activity. Report the Following to Your Physician Immediately: Yellow Skin, Unusual Bleeding, Redness, Drainage-Foul Smelling
[2017-05-29] MEDS: FENTANYL CITRATE INJ/PF 100 MCG/2 ML AMPUL ONE ×2 (16:00→16:05)
[2017-05-29] MEDS ORDERED: PROMETHAZINE HCL INJ 25 MG/1 ML VIAL ONE (16:09)
[2017-05-29 18:21] VITALS: BP 112/67
[2017-05-30] MEDS ORDERED: LACTATED RINGERS 1000 ML IV PRN (05:00)
[2017-05-30] MEDS ORDERED: LIDOCAINE 0.5% INJ-PF (5 MG/ML) 50 ML SDV SUBCUT PRN (05:00)
== END 2017-05-29 18:05 | disposition home or self-care (01) ==
LOC: OROUT 11:06
PROVIDERS: ATTEND Surgery
PROC: 0FT44ZZ Resection of Gallbladder, Percutaneous Endoscopic Approach (ICD-10-PCS; principal; 2017-05-29 13:00)
DX: K81.1 Chronic cholecystitis (principal); N83.202 Unspecified ovarian cyst, left side; N83.201 Unspecified ovarian cyst, right side; N83.8 Other noninflammatory disorders of ovary, fallopian tube and broad ligament
CPT/HCPCS: 47562; 36415; 83690; 85027; 80053; 88304 ×2; J2250; J1956; J3490; J1100; J3010 ×2; J2550; J0330; J2405; J2704; J0131; 790; J1170

== ENCOUNTER → 2017-08-01 | Outpatient (CLI) | payer BC ==
--- NOTE | 2017-08-01 13:41 | WOMENS IMAGING REPORT ---
EXAM DESCRIPTION: 3D DX MAMMO BILAT; U/S BREAST UNILAT LIMITED COMPLETED DATE/TIME: 08/01/2017 9:30 am; 08/01/2017 10:45 am REASON FOR STUDY: LUMP; N63; BILATERAL BREAST PALP; N63 N63.0 UNSPECIFIED LUMP IN UNSPECIFIED [address] COMPARISON: None. TECHNIQUE: Standard craniocaudal and mediolateral oblique views of each breast recorded using digita l acquisition and breast tomosynthesis. Bilateral cone compression in the CC and MLO orientations, bilateral whole breast 90 mediolateral vi ews. Bilateral breast ultrasound was also performed LIMITATIONS: None. FINDINGS: RIGHT BREAST MASSES: In the right upper outer quadrant, multiple well-circumscribed low-density mammographic nodul es are present, the largest is about 3.5 cm in size containing dependently layering benign calcificat ions. CALCIFICATIONS: No new or suspicious calcifications. ARCHITECTURAL DISTORTION: None. DEVELOPING DENSITY: None. ASYMMETRY: None noted. OTHER: No other significant findings. LEFT BREAST MASSES: In the left upper outer quadrant, multiple well-circumscribed low-density mammographic nodule s are present, the largest is almost 4 cm in size with benign dependently layering calcifications CALCIFICATIONS: No new or suspicious calcifications. ARCHITECTURAL DISTORTION: None. DEVELOPING DENSITY: None. ASYMMETRY: None noted. OTHER: No other significant finding. Read with the assistance of CAD: .[facility] - R2 Cenova Version 1.3 .[facility] Imaging - R2 Cenova Version 1.3 .[facility] Imaging - R2 Cenova Version 2.4 .[facility] [place] [place] - R2 Cenova Version 2.4 .[facility] - R2 Culinary Internship Version 9.2 Bilateral breast ultrasound: Ultrasound right upper outer quadrant was performed in the area of palpable abnormality. At the 9 o' clock position right breast, a 3.6 x 2.6 cm cyst is seen. At the right breast 10 to 11 o'clock posit ion, 2.1 cm cyst is present. Other smaller subcentimeter cysts are present in the upper outer quadra nt right breast. On the left side, ultrasound was performed in the area of palpable abnormality upper outer quadrant. At the 1 to 2 o'clock position, a 2.4 x 1.4 cm breast cyst is present. There is also a 3.8 x 2.8 cm breast cysts. Several other smaller cysts are seen in the left breast upper outer quadrant. IMPRESSION: Palpable abnormalities correlate with breast parenchymal cysts bilaterally. These are p ainful or bothersome to the patient, ultrasound-guided cyst aspiration could be performed. No mammographic or sonographic evidence for malignancy BREAST DENSITY: d. The breasts are extremely dense, which lowers the sensitivity of mammography. BIRAD: 2 Benign findings. RECOMMENDATION: RECOMMENDED FOLLOW UP: Please continue yearly bilateral screening mammography/ tomos ynthesis. Consider ultrasound-guided breast parenchymal cyst aspiration for patient comfort. SPECIFIC INTERVENTION/IMAGING/CONSULTATION RECOMMENDED:Consider ultrasound-guided breast parenchymal cyst aspiration for patient comfort COMMUNICATION:Patient notified by letter COMMENT: The patient has been notified of the results by letter per SA requirements. Additional no tification policies are in place for contacting patient with suspicious or incomplete findings. Quality ID #[id number]: The [employer] recommends an annual screening mammogram for women aged 40 years or over. This facility utilizes a reminder system to ensure that all patients receive reminder letters, and/or direct phone calls for appointments. This includes reminders for routine scr eening mammograms, diagnostic mammograms, or other Breast Imaging Interventions when appropriate. Th is patient will be placed in the appropriate reminder system. The [employer] (ACR) has developed recommendations for screening MRI of the breast s in certain patient populations, to be used in conjunction with mammography. Breast MRI surveillanc e may be appropriate for women with more than 20% lifetime risk of developing breast cancer as deter mined by genetic testing, significant family history of the disease, or history of mantle radiation f or Hodgkins Disease. ACR Practice Guidelines 2008. DBT Technology DBT is a type of tomographic mammography. With conventional mammography, overlapping breast tissue ma y make lesions difficult to detect, even with good compression. DBT uses an x-ray tube that rotates a round the breast, taking images at different angles. These images are then combined to create thin sl ices of the breast that the radiologist can view as a 3D reconstruction. The [employer] unit can perform full-field digital mammograms (2D imaging); or DBT (3D imaging); or both, in a combination mode that quickly performs both the mammogram and the tomosynthesis scan while the breast is still compressed. PQRS 6045F: Fluoroscopic imaging is not utilized for breast tomosynthesis. TECHNICAL DOCUMENTATION: FINDING NUMBER: (1) ASSESSMENT: (1) JOB ID: [id number] [employer]- All Rights Reserved Reading location - IP/workstation name: [email or web address]
--- NOTE | 2017-08-01 13:41 | WOMENS IMAGING REPORT ---
EXAM DESCRIPTION: 3D DX MAMMO BILAT; U/S BREAST UNILAT LIMITED COMPLETED DATE/TIME: 08/01/2017 9:30 am; 08/01/2017 10:45 am REASON FOR STUDY: LUMP; N63; BILATERAL BREAST PALP; N63 N63.0 UNSPECIFIED LUMP IN UNSPECIFIED [address] COMPARISON: None. TECHNIQUE: Standard craniocaudal and mediolateral oblique views of each breast recorded using digita l acquisition and breast tomosynthesis. Bilateral cone compression in the CC and MLO orientations, bilateral whole breast 90 mediolateral vi ews. Bilateral breast ultrasound was also performed LIMITATIONS: None. FINDINGS: RIGHT BREAST MASSES: In the right upper outer quadrant, multiple well-circumscribed low-density mammographic nodul es are present, the largest is about 3.5 cm in size containing dependently layering benign calcificat ions. CALCIFICATIONS: No new or suspicious calcifications. ARCHITECTURAL DISTORTION: None. DEVELOPING DENSITY: None. ASYMMETRY: None noted. OTHER: No other significant findings. LEFT BREAST MASSES: In the left upper outer quadrant, multiple well-circumscribed low-density mammographic nodule s are present, the largest is almost 4 cm in size with benign dependently layering calcifications CALCIFICATIONS: No new or suspicious calcifications. ARCHITECTURAL DISTORTION: None. DEVELOPING DENSITY: None. ASYMMETRY: None noted. OTHER: No other significant finding. Read with the assistance of CAD: .[facility] - R2 Cenova Version 1.3 .[facility] Imaging - R2 Cenova Version 1.3 .[facility] Imaging - R2 Cenova Version 2.4 .[facility] - R2 Cenova Version 2.4 .[facility] - R2 Supervisor Fertilizer Processing Version 9.2 Bilateral breast ultrasound: Ultrasound right upper outer quadrant was performed in the area of palpable abnormality. At the 9 o' clock position right breast, a 3.6 x 2.6 cm cyst is seen. At the right breast 10 to 11 o'clock posit ion, 2.1 cm cyst is present. Other smaller subcentimeter cysts are present in the upper outer quadra nt right breast. On the left side, ultrasound was performed in the area of palpable abnormality upper outer quadrant. At the 1 to 2 o'clock position, a 2.4 x 1.4 cm breast cyst is present. There is also a 3.8 x 2.8 cm breast cysts. Several other smaller cysts are seen in the left breast upper outer quadrant. IMPRESSION: Palpable abnormalities correlate with breast parenchymal cysts bilaterally. These are p ainful or bothersome to the patient, ultrasound-guided cyst aspiration could be performed. No mammographic or sonographic evidence for malignancy BREAST DENSITY: d. The breasts are extremely dense, which lowers the sensitivity of mammography. BIRAD: 2 Benign findings. RECOMMENDATION: RECOMMENDED FOLLOW UP: Please continue yearly bilateral screening mammography/ tomos ynthesis. Consider ultrasound-guided breast parenchymal cyst aspiration for patient comfort. SPECIFIC INTERVENTION/IMAGING/CONSULTATION RECOMMENDED:Consider ultrasound-guided breast parenchymal cyst aspiration for patient comfort COMMUNICATION:Patient notified by letter COMMENT: The patient has been notified of the results by letter per SA requirements. Additional no tification policies are in place for contacting patient with suspicious or incomplete findings. Quality ID #[id number]: The [employer] recommends an annual screening mammogram for women aged 40 years or over. This facility utilizes a reminder system to ensure that all patients receive reminder letters, and/or direct phone calls for appointments. This includes reminders for routine scr eening mammograms, diagnostic mammograms, or other Breast Imaging Interventions when appropriate. Th is patient will be placed in the appropriate reminder system. The [employer] (ACR) has developed recommendations for screening MRI of the breast s in certain patient populations, to be used in conjunction with mammography. Breast MRI surveillanc e may be appropriate for women with more than 20% lifetime risk of developing breast cancer as deter mined by genetic testing, significant family history of the disease, or history of mantle radiation f or Hodgkins Disease. ACR Practice Guidelines 2008. DBT Technology DBT is a type of tomographic mammography. With conventional mammography, overlapping breast tissue ma y make lesions difficult to detect, even with good compression. DBT uses an x-ray tube that rotates a round the breast, taking images at different angles. These images are then combined to create thin sl ices of the breast that the radiologist can view as a 3D reconstruction. The [employer] unit can perform full-field digital mammograms (2D imaging); or DBT (3D imaging); or both, in a combination mode that quickly performs both the mammogram and the tomosynthesis scan while the breast is still compressed. PQRS 6045F: Fluoroscopic imaging is not utilized for breast tomosynthesis. TECHNICAL DOCUMENTATION: FINDING NUMBER: (1) ASSESSMENT: (1) JOB ID: [id number] [employer]- All Rights Reserved Reading location - IP/workstation name: [email or web address]
--- NOTE | 2017-08-01 13:41 | WOMENS IMAGING REPORT ---
EXAM DESCRIPTION: 3D DX MAMMO BILAT; U/S BREAST UNILAT LIMITED COMPLETED DATE/TIME: 08/01/2017 9:30 am; 08/01/2017 10:45 am REASON FOR STUDY: LUMP; N63; BILATERAL BREAST PALP; N63 N63.0 UNSPECIFIED LUMP IN UNSPECIFIED [address] COMPARISON: None. TECHNIQUE: Standard craniocaudal and mediolateral oblique views of each breast recorded using digita l acquisition and breast tomosynthesis. Bilateral cone compression in the CC and MLO orientations, bilateral whole breast 90 mediolateral vi ews. Bilateral breast ultrasound was also performed LIMITATIONS: None. FINDINGS: RIGHT BREAST MASSES: In the right upper outer quadrant, multiple well-circumscribed low-density mammographic nodul es are present, the largest is about 3.5 cm in size containing dependently layering benign calcificat ions. CALCIFICATIONS: No new or suspicious calcifications. ARCHITECTURAL DISTORTION: None. DEVELOPING DENSITY: None. ASYMMETRY: None noted. OTHER: No other significant findings. LEFT BREAST MASSES: In the left upper outer quadrant, multiple well-circumscribed low-density mammographic nodule s are present, the largest is almost 4 cm in size with benign dependently layering calcifications CALCIFICATIONS: No new or suspicious calcifications. ARCHITECTURAL DISTORTION: None. DEVELOPING DENSITY: None. ASYMMETRY: None noted. OTHER: No other significant finding. Read with the assistance of CAD: .[facility] - R2 Cenova Version 1.3 .[facility] Imaging - R2 Cenova Version 1.3 .[facility] Imaging - R2 Cenova Version 2.4 .[facility] - R2 Cenova Version 2.4 .[facility] - R2 Business Systems Manager Version 9.2 Bilateral breast ultrasound: Ultrasound right upper outer quadrant was performed in the area of palpable abnormality. At the 9 o' clock position right breast, a 3.6 x 2.6 cm cyst is seen. At the right breast 10 to 11 o'clock posit ion, 2.1 cm cyst is present. Other smaller subcentimeter cysts are present in the upper outer quadra nt right breast. On the left side, ultrasound was performed in the area of palpable abnormality upper outer quadrant. At the 1 to 2 o'clock position, a 2.4 x 1.4 cm breast cyst is present. There is also a 3.8 x 2.8 cm breast cysts. Several other smaller cysts are seen in the left breast upper outer quadrant. IMPRESSION: Palpable abnormalities correlate with breast parenchymal cysts bilaterally. These are p ainful or bothersome to the patient, ultrasound-guided cyst aspiration could be performed. No mammographic or sonographic evidence for malignancy BREAST DENSITY: d. The breasts are extremely dense, which lowers the sensitivity of mammography. BIRAD: 2 Benign findings. RECOMMENDATION: RECOMMENDED FOLLOW UP: Please continue yearly bilateral screening mammography/ tomos ynthesis. Consider ultrasound-guided breast parenchymal cyst aspiration for patient comfort. SPECIFIC INTERVENTION/IMAGING/CONSULTATION RECOMMENDED:Consider ultrasound-guided breast parenchymal cyst aspiration for patient comfort COMMUNICATION:Patient notified by letter COMMENT: The patient has been notified of the results by letter per SA requirements. Additional no tification policies are in place for contacting patient with suspicious or incomplete findings. Quality ID #[id number]: The [employer] recommends an annual screening mammogram for women aged 40 years or over. This facility utilizes a reminder system to ensure that all patients receive reminder letters, and/or direct phone calls for appointments. This includes reminders for routine scr eening mammograms, diagnostic mammograms, or other Breast Imaging Interventions when appropriate. Th is patient will be placed in the appropriate reminder system. The [employer] (ACR) has developed recommendations for screening MRI of the breast s in certain patient populations, to be used in conjunction with mammography. Breast MRI surveillanc e may be appropriate for women with more than 20% lifetime risk of developing breast cancer as deter mined by genetic testing, significant family history of the disease, or history of mantle radiation f or Hodgkins Disease. ACR Practice Guidelines 2008. DBT Technology DBT is a type of tomographic mammography. With conventional mammography, overlapping breast tissue ma y make lesions difficult to detect, even with good compression. DBT uses an x-ray tube that rotates a round the breast, taking images at different angles. These images are then combined to create thin sl ices of the breast that the radiologist can view as a 3D reconstruction. The [employer] unit can perform full-field digital mammograms (2D imaging); or DBT (3D imaging); or both, in a combination mode that quickly performs both the mammogram and the tomosynthesis scan while the breast is still compressed. PQRS 6045F: Fluoroscopic imaging is not utilized for breast tomosynthesis. TECHNICAL DOCUMENTATION: FINDING NUMBER: (1) ASSESSMENT: (1) JOB ID: [id number] [employer]- All Rights Reserved Reading location - IP/workstation name: [email or web address]
== END ==
LOC: WI 08:50
PROVIDERS: ATTEND Obstetrics & Gynecology
DX: N63.11 Unspecified lump in the right breast, upper outer quadrant (principal); N63.21 Unspecified lump in the left breast, upper outer quadrant
CPT/HCPCS: 76642; 77066; G0279; 77062

== ENCOUNTER → 2018-11-01 | Day surgery (SDC) | payer BC ==
[~2018-11-01] MED LIST changes: -ACETAMINOPHEN 325 MG TABLET PO PRN; -BUPIVACAINE HCL 0.25 % INJ/PF (2.5 MG/1 ML) 30 ML VIAL ONE; -DEXAMETHASONE SOD PHOSPHATE INJ 4 MG/1 ML VIAL ONE; -GLYCOPYRROLATE INJ 0.4 MG/2 ML VIAL ONE; -LEVOFLOXACIN 500 MG/D5W RTU 500 MG/100 ML RTUPB IV PRN; -LEVOFLOXACIN 750 MG/D5W RTU 750 MG/150 ML RTUPB IV SCH; +LIDOCAINE 1% INJ-PF (10 MG/ML) 30 ML SDV ONE; -NEOSTIGMINE METHYLSULFATE 10 MG/10 ML VIAL ONE; -ONDANSETRON HCL INJ/PF 4 MG/2 ML SDV ONE; -RINGERS SOLUTION,LACTATED 1,000 ML IV PRN; -ROCURONIUM BROMIDE INJ 50 MG/5 ML VIAL IV ONE; -SUCCINYLCHOLINE CHLORIDE INJ 200 MG/10 ML VIAL ONE
== END ==
LOC: WI 09:56
PROVIDERS: ATTEND Surgery
DX: N63.11 Unspecified lump in the right breast, upper outer quadrant (principal)
CPT/HCPCS: 88305 ×2; 19083; 77065; J3490

== ENCOUNTER 2018-11-05 18:40 | Emergency (ER) | payer BC ==
[2018-11-05 22:56] LABS: ABSOLUTE EOSINOPHILS # (AUTO) 0.1 10^3/uL (0.0-0.6); ABSOLUTE LYMPHOCYTES (AUTO) 1.9 10^3/uL (0.5-4.7); ABSOLUTE MONOCYTES (AUTO) 0.5 10^3/uL (0.1-1.4); ABSOLUTE NEUT (AUTO) 6.4 10^3/uL (1.7-8.2); BASOPHILS % (AUTO) 0.2 % (0-2); EOSINOPHILS % (AUTO) 1.1 % (0-6); HEMATOCRIT 38.8 % (36.0-47.0); HEMOGLOBIN 13.1 g/dL (12.0-15.5); MEAN CORPUSCULAR HEMOGLOBIN 32.7 pg (27.0-33.4); MEAN CORPUSCULAR HGB CONC 33.6 g/dL (32.0-36.0); MEAN CORPUSCULAR VOLUME 97 fl (80-97); MONOCYTES % (AUTO) 5.4 % (3-13); PLATELET COUNT 222 10^3/uL (150-450); RED BLOOD COUNT 3.99 10^6/uL (3.72-5.28); RED CELL DISTRIBUTION WIDTH 13.5 % (11.5-14.0); SEGMENTED NEUTROPHILS % (AUTO) 72.3 % (42-78); TOTAL CELLS COUNTED % (AUTO) 100 %; WHITE BLOOD COUNT 8.8 10^3/uL (4.0-10.5)
[2018-11-05 23:11] LABS: APPEARANCE,URINE SLIGHTLY-CLOUDY; BILIRUBIN,URINE NEGATIVE (NEGATIVE); COLOR,URINE YELLOW; GLUCOSE, URINE NEGATIVE (NEGATIVE); KETONES,URINE TRACE mg/dL (NEGATIVE); LEUKOCYTE ESTERASE,URINE NEGATIVE (NEGATIVE); NITRITE,URINE NEGATIVE (NEGATIVE); PROTEIN,URINE 30 mg/dL (NEGATIVE); URINE SPECIFIC GRAVITY 1.028
[2018-11-05 23:18] LABS: ALANINE AMINOTRANSFERASE 19 U/L (9-52); ALBUMIN 4.3 g/dL (3.5-5.0); ALKALINE PHOSPHATASE 58 U/L (38-126); ANION GAP 8 (5-19); ASPARTATE AMINO TRANSFERASE 21 U/L (14-36); BILIRUBIN,DIRECT 0.2 mg/dL (0.0-0.4); BILIRUBIN,TOTAL 0.3 mg/dL (0.2-1.3); BLOOD UREA NITROGEN 14 mg/dL (7-20); CALCIUM 9.5 mg/dL (8.4-10.2); CARBON DIOXIDE 29 mmol/L (22-30); CHLORIDE 105 mmol/L (98-107); GLUCOSE 98 mg/dL (75-110); POTASSIUM 4.7 mmol/L (3.6-5.0); TOTAL PROTEIN 7.5 g/dL (6.3-8.2)
[2018-11-06] MEDS ORDERED: ONDANSETRON HCL INJ/PF 4 MG/2 ML SDV IV ONE (00:09)
[2018-11-06] MEDS ORDERED: NORMAL SALINE 1000 ML 1,000 ML IV ONE (00:09)
[2018-11-06] MEDS ORDERED: KETOROLAC TROMETHAMINE INJ/PF 30 MG/1 ML SDV IV ONE (00:09)
--- NOTE | 2018-11-06 00:15 | ER Document Report ---
ED General - General Chief Complaint: Abdominal Pain Stated Complaint: RIGHT SIDE PAIN Time Seen by Provider: 11/05/18 23:51 Primary Care Provider: ZAHIRA DICKENS MD [ACTIVE STAFF] - Follow up as needed TRAVEL OUTSIDE OF THE [place] IN LAST 30 DAYS: No - HPI Notes: Patient is a 43-year-old female that presents to the emergency department for chief complaint of right lower quadrant abdominal pain. Patient had sudden onset of pain in her right lower quadrant around 1 PM this ev ening. She states the pain is been constant since onset and nonradiating. She gets some relief of the pain when she is in the position and it is worse when she is standing and ambulating. She states that when the pain became severe she did have an episode of emesis. Patient reports normal bowel movement this morning with no associated diarrhea. She denies any fevers or chills. She denies any dysuria or urinary frequency. Patient does still have her appendix but has a history of cholecystectomy and partial hysterectomy with single oophorectomy. She is not sure which side her remaining ovary is on. She has not taken any dlpy-yek-eaqjoax medicine for her pain. Past Medical History: Chronic back pain, sciatica Past Surgical History: Hysterectomy with unilateral oophorectomy, c holecystectomy Social History: Reviewed in chart Family History: Reviewed and noncontributory for presenting illness Allergies: Reviewed, see documented allergy list. REVIEW OF SYSTEMS: CONSTITUTIONAL : No fever No chills No diaphoresis No recent illness EENT: No vision changes No congestion No sore throat CARDIOVASCULAR: No chest pain No palpitations RESPIRATORY: No shortness of breath No cough No difficulty breathing GASTROINTESTINAL: abdominal pain nausea vomiting No diarrhea GENITOURINARY: No dysuria No hematuria No difficulty urinating MUSCULOSKELETAL: No back pain No leg pain No arm pain SKIN: No rashes No lesions LYMPHATIC: No swollen, enlarged glands. NEUROLOGICAL: No lightheadedness No headache No weakness No paresthesias PSYCHIATRIC: No anxiety No depression PHYSICAL EXAMINATION: Vital signs reviewed, nursing noted reviewed. GENERAL: Well-appearing, well-nourished and in no acute distress. HEAD: Atraumatic, normocephalic. EYES: Eyes appear normal, extraocular movements intact, sclera anicteric, conjunctiva are normal. ENT: nares patent, oropharynx clear without exudates. Moist mucous membranes. NECK: Normal range of motion, supple without lymphadenopathy LUNGS: Breath sounds clear to auscultation bilaterally and equal. No wheezes rales or rhonchi. HEART: Regular rate and rhythm without murmurs ABDOMEN: Soft, right lower quadrant tenderness with voluntary guarding, normoactive bowel sounds. No rebound or rigidity. No masses appreciated. EXTREMITIES: Nontender, good range of motion, no pitting or edema. NEUROLOGICAL: No focal neurological deficits. Moves all extremities spontaneously Motor and sensory grossly intact on exam. PSYCH: Normal mood, normal affect. SKIN: Warm, Dry, normal turgor, no rashes or lesions noted on exposed skin - Related Data Allergies/Adverse Reactions: divalproex sodium [From Depakote] Allergy (Severe, Verified 11/05/18 18:41) Hives Penicillins Allergy (Severe, Verified 11/05/18 18:41) Anaphylaxis sulfamethoxazole [From Septra] Allergy (Severe, Verified 11/05/18 18:41) Hives tramadol [Tramadol] Allergy (Severe, Verified 11/05/18 18:41) vomitting trimethoprim [From Septra] Allergy (Severe, Verified 11/05/18 18:41) Hives Past Medical History - Social History Smoking Status: Unknown if Ever Smoked Family History: Reviewed & Not Pertinent - Past Medical History Cardiac Medical History: Denies: Hx Coronary Artery Disease, Hx Heart Attack, Hx Hypertension Pulmonary Medical History: Reports: Hx Asthma, Hx Bronchitis Denies: Hx COPD, Hx Pneumonia Neurological Medical History: Reports: Hx Migraine. Denies: Hx Cerebrovascular Accident, Hx Seizures Renal/ Medical History: Denies: Hx Peritoneal Dialysis Musculoskeletal Medical History: Reports Hx Arthritis - Chronic back pain - lumbar disks Past Surgical History: Reports: Hx Gynecologic Surgery - tubal , left ovary removed, Hx Hysterectomy, Hx Orthopedic Surgery - R wrist, Hx Tubal Ligation - Immunizations Immunizations up to date: Yes Hx Diphtheria, Pertussis, Tetanus Vaccination: Yes Physical Exam - Vital signs Vitals: Temp Pulse Resp BP Pulse Ox 98.0 F 81 12 121/64 99 11/05/18 18:52 11/05/18 18:52 11/05/18 18:52 11/05/18 18:52 11/05/18 18:52 Course - Re-evaluation Re-evalutation: 11/06/18 00:14 Vitals reviewed. Nursing notes reviewed. Patient's initial work-up is unremarkable. She has no elevated WBC count. Patient appears well-hydrated with normal renal function and no severe electrolyte derangements. I did repeat her temperature upon my evaluation and she is 98.2 and not tachycardic. She is having focal tenderness over her appendix and early appendicitis is a possibility. CT scan will be ordered for further evaluation. Patient also has a history of ureterolithiasis. Urinalysis today shows no blood or acute infection. 11/06/18 02:09 CT scan shows a large stool burden consistent with constipation. Patient's appendix was not visualized although there is no surrounding signs of acute appendicitis and she has no leukocytosis or fever. Currently my suspicion for appendicitis is minimal. I did explain to the patient that her symptoms are likely related to constipation. She will be given magnesium citrate and was counseled on using MiraLAX at home. She is on daily opiate medication which is likely causing her constipation. Patient told to return to the emergency room if her symptoms are not resolved after having good bowel movements or if she begins to develop fever and new concerning symptoms. Patient in agreement with plan of care Laboratory 11/05/18 11/05/18 11/05/18 22:44 22:44 22:44 WBC 8.8 RBC 3.99 Hgb 13.1 Hct 38.8 MCV 97 MCH 32.7 MCHC 33.6 RDW 13.5 Plt Count 222 Seg Neutrophils % 72.3 Lymphocytes % 21.0 Monocytes % 5.4 Eosinophils % 1.1 Basophils % 0.2 Absolute Neutrophils 6.4 Absolute Lymphocytes 1.9 Absolute Monocytes 0.5 Absolute Eosinophils 0.1 Absolute Basophils 0.0 Sodium 142.4 Potassium 4.7 Chloride 105 Carbon Dioxide 29 Anion Gap 8 BUN 14 Creatinine 1.08 Est GFR ( Amer) > 60 Est GFR (Non-Af Amer) 55 L Glucose 98 Calcium 9.5 Total Bilirubin 0.3 Direct Bilirubin 0.2 Neonat Total Bilirubin Not Reportable Neonat Direct Bilirubin Not Reportable Neonat Indirect Bili Not Reportable AST 21 ALT 19 Alkaline Phosphatase 58 Total Protein 7.5 Albumin 4.3 Lipase 162.0 Urine Color YELLOW Urine Appearance SLIGHTLY-CLOUDY Urine pH 6.0 Ur Specific [place] 1.028 Urine Protein 30 H Urine Glucose (UA) NEGATIVE Urine Ketones TRACE H Urine Blood NEGATIVE Urine Nitrite NEGATIVE Urine Bilirubin NEGATIVE Urine Urobilinogen 2.0 H Ur Leukocyte Esterase NEGATIVE Urine WBC (Auto) 1 Urine RBC (Auto) 3 Urine Bacteria (Auto) TRACE Squamous Epi Cells Auto 22 Urine Mucus (Auto) OCC Urine Ascorbic Acid NEGATIVE Urine HCG, Qual NEGATIVE Abdomen/Pelvis CT 11/06/18 00:10 IMPRESSION: 1. Subtle fat stranding around the bladder raising a question of cystitis, recommend correlation with urinalysis. 2. Nonvisualization of the appendix without definite secondary signs of appendicitis. If there is high clinical concern for appendicitis consider repeat short-term follow-up exam with IV and oral contrast. 3. Otherwise no acute abnormality. - Vital Signs Vital signs: Temp Pulse Resp BP Pulse Ox 98.0 F 81 12 121/64 99 11/05/18 18:52 11/05/18 18:52 11/05/18 18:52 11/05/18 18:52 11/05/18 18:52 - Laboratory Result Diagrams: 11/05/18 22:44 11/05/18 22:44 Laboratory results interpreted by me: 11/05/18 11/05/18 22:44 22:44 Est GFR (Non-Af Amer) 55 L Urine Protein 30 H Urine Ketones TRACE H Urine Urobilinogen 2.0 H Discharge - Discharge Clinical Impression: Constipation Qualifiers: Constipation type: drug induced constipation Qualified Code(s): K59.03 - Drug induced constipation Abdominal pain Qualifiers: Abdominal location: right lower quadrant Qualified Code(s): R10.31 - Right lower quadrant pain Condition: Stable Disposition: HOME, SELF-CARE Instructions: Constipation (OM) Additional Instructions: Please return to the emergency department if you have any worsening, or concern of your symptoms. Please return to the emergency department if you develop chest pain, difficulty breathing, severe abdominal pain, or ongoing vomiting. Please follow-up with your primary care physician in 2-3 days and any other recommended physicians. If prescribed, take all medications as directed. If you have any questions or concerns do not hesitate to return the emergency department for evaluation. Take MiraLAX 1-2 times daily to prevent further constipation Referrals: BRANDON OCHOA MD [ACTIVE STAFF] - Follow up as needed
--- NOTE | 2018-11-06 01:39 | RADIOLOGY REPORT (SQ) ---
CT abdomen and pelvis with contrast on 11/06/2018 at 1:09 AM CLINICAL INDICATION: Right lower quadrant pain TECHNIQUE: Multiple axial images are obtained throughout the abdomen and pelvis following the administration of IV contrast, 69 mL of Omnipaque 300 contrast was administered intravenously without complication. This exam was performed according to our departmental dose-optimization program, which includes automated exposure control, adjustment of the mA and/or kV according to patient size and/or use of iterative reconstruction technique. Total DLP is 560 mGy*cm. COMPARISON: 01/31/2017 FINDINGS: Abdomen: There is minimal basilar atelectasis. The patient is status post cholecystectomy. The solid abdominal organs are unremarkable. There is no abdominal adenopathy. There is no free fluid or free air within the abdomen. The abdominal portion of the GI tract is unremarkable. Pelvis: Small amount of free fluid in the pelvis is likely physiologic. The patient appears to be status post hysterectomy. There is no pelvic adenopathy. The appendix is not definitely visualized but no pericecal inflammatory changes are noted. There is subtle fat stranding around the bladder raising question of cystitis, recommend correlation with urinalysis. No bony abnormality is noted. IMPRESSION: 1. Subtle fat stranding around the bladder raising a question of cystitis, recommend correlation with urinalysis. 2. Nonvisualization of the appendix without definite secondary signs of appendicitis. If there is high clinical concern for appendicitis consider repeat short-term follow-up exam with IV and oral contrast. 3. Otherwise no acute abnormality.
[2018-11-06] MEDS ORDERED: MAGNESIUM CITRATE 296 ML BOTTLE PO ONE (02:07)
[2018-11-06 02:42] VITALS: BP 92/44
== END 2018-11-06 02:42 | disposition home or self-care (01) ==
LOC: ER 18:40
DX: K59.03 Drug induced constipation (principal); R10.31 Right lower quadrant pain; Z90.721 Acquired absence of ovaries, unilateral; J45.909 Unspecified asthma, uncomplicated
CPT/HCPCS: 99284; 96361; 96374; 96375; 36415; 83690; 85025; 81025; 80053; 81001; 74177; J3490; J1885; J2405; J7030

== ENCOUNTER → 2019-08-26 | Outpatient (CLI) | payer BC ==
--- NOTE | 2019-08-26 11:50 | RADIOLOGY REPORT (SQ) ---
EXAM DESCRIPTION: HIP LEFT AP/LATERAL IMAGES COMPLETED DATE/TIME: 08/26/2019 11:30 am REASON FOR STUDY: PAIN IN LEFT HIP (M25.552) M25.552 PAIN IN LEFT HIP COMPARISON: None. NUMBER OF VIEWS: Two views. TECHNIQUE: AP and frog-leg view of the left hip. LIMITATIONS: None. FINDINGS: MINERALIZATION: Normal. LEFT HIP: No fracture or dislocation. No worrisome bone lesions. No contour deformity. No joint spa ce narrowing. OPPOSITE HIP: No fracture or dislocation. No worrisome bone lesions. SOFT TISSUES: No findings. OTHER: No other significant finding. IMPRESSION: NEGATIVE STUDY OF THE LEFT HIP. NO EXPLANATION FOR PAIN. TECHNICAL DOCUMENTATION: JOB ID: [id number] 2010 [employer]- All Rights Reserved Reading location - IP/workstation name: [email or web address]
--- NOTE | 2019-08-27 18:16 | RADIOLOGY REPORT (SQ) ---
EXAM DESCRIPTION: MRI LT LOWER JOINT WITHOUT IMAGES COMPLETED DATE/TIME: 08/26/2019 11:56 am REASON FOR STUDY: PAIN IN LEFT HIP (M25.552) M25.552 PAIN IN LEFT HIP COMPARISON: None. TECHNIQUE: Lefthip images acquired and stored on PACS. Multiplanar images to include fat sensitive s equences as T1, fluid sensitive sequences as T2/STIR and gradient echo sequences. Large FOV fat and f luid sensitive sequences include pelvis and opposite hip. LIMITATIONS: None. FINDINGS: BONE CORTEX AND MARROW: No generalized marrow replacement. No occult fracture. No worriso me bone lesions. TARGETED HIP: FEMORAL HEAD: No occult fracture. No osteophytes or subchondral cysts. Normal sphericity of femoral h ead/neck junction. No acetabular dysplasia. No evidence femoroacetabular impingement. No significant effusion. ACETABULUM: No acetabular dysplasia. No subchondral cysts. LABRUM: No loss of cartilage or delamination. Labrum is intact. No paralabral cysts. TROCHANTER: No trochanteric bursal effusion. No edema/fluid at the insertions of the gluteus medius and gluteus minimus. OPPOSITE HIP: Limited evaluation. No worrisome bone lesions. No significant effusion. PELVIS, LOWER LUMBAR SPINE, SACROILIAC JOINTS: PELVIS : No insufficiency/stress fractures. No significant degenerative changes. Sacroiliac joints normal. L SPINE: No significant osteophytes or degenerative changes of the visualized lumbar spine. MUSCLES AND SOFT TISSUES: Adductors and piriformis normal. Abductors and greater trochanteric bursa n ormal without edema or fluid. Iliopsoas bursa without fluid. Hamstring attachments without edema or t ear. PELVIC SOFT TISSUES: No masses or adenopathy. SCIATIC NERVE: Identified, without masses or abnormal signal. OTHER: No other significant finding. IMPRESSION: NO SIGNIFICANT FINDING IN THE HIP. TECHNICAL DOCUMENTATION: JOB ID: [id number] 2010 [employer]- All Rights Reserved Reading location - IP/workstation name: [email or web address]
== END ==
LOC: RAD 10:29
PROVIDERS: ATTEND Pain Medicine Interventional Pain Medicine
DX: M25.552 Pain in left hip (principal)

== ENCOUNTER → 2019-10-23 | Outpatient (CLI) | payer BC ==
--- NOTE | 2019-10-23 11:42 | RADIOLOGY REPORT (SQ) ---
EXAM DESCRIPTION: MRI LUMBAR SPINE WITHOUT IMAGES COMPLETED DATE/TIME: 10/23/2019 11:03 am REASON FOR STUDY: OTHER INTERVERTEBRAL DISC DISPLACEMENT, LUMBOSACRAL REGION (M51.27) M51.27 OTHER INTERVERTEBRAL DISC DISPLACEMENT, LUMBOSACRAL R COMPARISON: None. TECHNIQUE: Sagittal and Axial imaging includes T1, T2, STIR and gradient echo sequences. Coronal T2/ HASTE imaging. LIMITATIONS: None. FINDINGS: VISUALIZED UPPER ABDOMEN: Limited evaluation. No acute or suspicious findings suggested. SEGMENTATION: No transitional anatomy. The lowest well-developed disc space is labeled L5-S1. ALIGNMENT: Anatomic. VERTEBRAE: Intact. BONE MARROW: Normal. No marrow replacement or reactive changes. DISC SIGNAL: Intervertebral disc desiccation and loss of height are seen at the L5-S1 more so than th e L3/4 level. POSTERIOR ELEMENTS: Generally intact. No pars defect evident. HARDWARE: None in the spine. CORD AND CONUS: Normal in size and signal intensity. Conus at the appropriate level. SOFT TISSUES: No aortic aneurysm seen. No bulky retroperitoneal adenopathy or mass. No paraspinal mas s or fluid. L1-L2: No significant spinal stenosis or exit foraminal stenosis. L2-L3: No significant spinal stenosis or exit foraminal stenosis. L3-L4: No significant spinal stenosis or exit foraminal stenosis. L4-L5: Shallow, broad-based posterior disc bulge without significant central canal or neural foramina l stenosis. L5-S1: Left paramedian disc protrusion with central canal narrowing, contacting the traversing left S 1 nerve root in the lateral recess. The neural foramina remain patent. LOWER THORACIC: Incompletely imaged. No stenosis seen. SACRUM: Visualized upper sacrum intact. OTHER: No other significant findings. IMPRESSION: Single level spondylotic changes with left paramedian disc protrusion at the L5-S1 level contacting the traversing left S1 nerve root. Recommend correlation for attributable symptoms and/o r physical exam findings. TECHNICAL DOCUMENTATION: JOB ID: [id number] 2010 [employer]- All Rights Reserved Reading location - IP/workstation name: [email or web address]
== END ==
LOC: RAD 10:16
PROVIDERS: ATTEND Pain Medicine Interventional Pain Medicine
DX: M51.27 Other intervertebral disc displacement, lumbosacral region (principal)
CPT/HCPCS: 72148

== ENCOUNTER → 2020-02-05 | Outpatient (CLI) | payer BC ==
--- NOTE | 2020-02-05 11:58 | RADIOLOGY REPORT (SQ) ---
EXAM DESCRIPTION: VENOUS UNILATERAL LOWER IMAGES COMPLETED DATE/TIME: 02/05/2020 11:44 am REASON FOR STUDY: LLE SWELLING M79.89 OTHER SPECIFIED SOFT TISSUE DISORDERS COMPARISON: None. TECHNIQUE: Dynamic and static herrmann scale and color images acquired of the left leg venous system. Se lected spectral images acquired with additional compression and augmentation maneuvers. The contralat eral common femoral vein and saphenofemoral junction were also imaged. Images stored on PACS. LIMITATIONS: None. FINDINGS: COMMON FEMORAL: Normal phasicity, compression and augmentation. No visualized echogenic ma terial on herrmann scale. No defects on color images. FEMORAL: Normal compression and augmentation. No visualized echogenic material on herrmann scale. No defe cts on color images. POPLITEAL: Normal compression, augmentation. No visualized echogenic material on herrmann scale. No defec ts on color images. CALF VESSELS: Normal compression, augmentation. No visualized echogenic material on herrmann scale. No de fects on color images. GSV and SSV: Normal compression, augmentation. No visualized echogenic material on herrmann scale. No def ects on color images. ANY DEEP VENOUS INSUFFICIENCY: Not evaluated. ANY EVIDENCE OF POPLITEAL CYST: No. OTHER: No other significant finding. CONTRALATERAL COMMON FEMORAL VEIN AND SAPHENOFEMORAL JUNCTION: Normal phasicity, compression and augmentation. No visualized echogenic material on herrmann scale. No de fects on color images. IMPRESSION: NO EVIDENCE DVT OR SVT IN THE LEFT LEG. COMMENT: Preliminary report was called by the technologist to the referring clinician's office at t he time of the exam. TECHNICAL DOCUMENTATION: JOB ID: [id number] 2010 [employer]- All Rights Reserved Reading location - IP/workstation name: [email or web address]
== END ==
LOC: SP 10:45
PROVIDERS: ATTEND Specialist
DX: M79.89 Other specified soft tissue disorders (principal)
CPT/HCPCS: 93971